=== PATIENT | female | born 1980 | race Caucasian/White ===

== ENCOUNTER 2022-11-23 01:33 | Day surgery (SDC) | payer OTHER, SELFPAY ==
--- NOTE | 2022-11-10 10:13 | SUR.PREOP ---
Report to the Outpatient Waiting Room, entrance under the green pavilion located off [facility], at time 1000 on date 11/23/22. Planned Procedure Time: 1200. Time changes happen often and if your time is changed the preop area will call you the afternoon before. - You and your visitor will be asked to self-screen and do not enter if you have any COVID symptoms. - Only one visitor is requested with a max of two and NO children visitors are allowed at this time. - The patient visitor may be requested to leave or wait in car when not with patient due to distancing restrictions. - A mask is optional within the hospital at this time. Patients may have clear liquids (water, carbonated beverages, clear teas, apple juice) until 3 hours prior to surgery with a maximum of 20 ounces. - No food from midnight until time of surgery - Infants may have breast milk until 4 hours before surgery, formula 6 hours prior to surgery. - Children will be allowed to drink immediately following surgery. If applicable, please bring a bottle or sippy cup to assist with drinking. Juice, water, soda, and popsicles are readily available. For infants on formula, please bring formula the day of surgery. Pacifiers are allowed. Take the following medications with a SIP of water the morning of surgery: N/A DO NOT STOP ANY OF YOUR OTHER PRESCRIPTION MEDICATIONS PRIOR TO SURGERY ?EXCEPT THE FOLLOWING Medications to discontinue per physician N/A Date to take last dose N/A Please no make-up, nail mongolian, hairspray, perfume, deodorant, or body powder the day of surgery. No jewelry (including any body piercings) or valuables the day of surgery, leave them at home. Please take a shower or bath the night before, or the morning of, surgery with an antibacterial soap. Wear comfortable, loose fitting clothing. Children are encouraged to wear pajamas. - Jewelry must be removed prior to entering the operating room. Rings and piercings that are not removed may be cut off. - The hospital will not accept responsibility for valuables. - Please leave all valuables, including medications, at home the day of surgery. If you are going home after surgery, a licensed cement truck driver must drive you home. - NO public transportation without another adult if you receive anesthesia. - We recommend that an adult stay with you for 24 hours following discharge. - We also recommend that you do not drive, make important decision, drink alcoholic beverages, or take any drugs that were not prescribed by your health care provider for at least 24 hours after your discharge time. For Pediatric surgeries, we recommend two adults accompany the child home. Follow any additional instructions given to you from your surgeon. If you or anyone in your household have experienced Covid symptoms in the past week, please notify your surgeon or the nurse liaison at the phone number below for possible testing. Telephone instructions given to ROXI TIDWELL and asked if any additional questions and then verbalized understanding. Patient advised to call surgeon office or pre surgery nurse liaison [phone] if any additional questions.
[2022-11-10 10:20] VITALS: BMI 24.7
--- NOTE | 2022-11-22 19:53 | PM.IMHP ---
H&P: HPI History of Present Illness Date/Time: 11/22/22 19:53 Chief Complaint: Heavy periods. Narrative: 41 y/o with heavy menses. She has monthly menses with 6 days of flow. The first 1-3 days are horrific, and she will frequently overflow her protection onto her clothing. An endometrial sampling was benign. She had a right salpingectomy, but her left Fallopian tube is in situ, and she has been told it is abnormal. She has tried hormonal management, but has quite a lot of nausea. She does not desire future childbearing. She desires surgical management of her problem. Review of Systems Review of Systems: All systems reviewed & are unremarkable except as noted in HPI and below PMFSH Past Medical History Medical History (Updated 11/22/22 @ 20:01 by Srini Epps MD) History of ectopic Surgical History Surgical History (Updated 11/22/22 @ 19:58 by Srini Epps MD) History of eye surgery History of salpingectomy Social History Social History Smoking status: Never smoker Second hand tobacco smoke exposure: No Alcohol intake: current Alcohol use details: 1 PER MONTH Living arrangements: with family Spiritual care concerns: No Comments Past OB: One vaginal delivery of a boy weighing 8 pounds at term. Three ectopic pregnancies, one leading to laparoscopic right salpingectomy. Meds Home Medications and Allergies Home Medications Medication Instructions Recorded Confirmed Type tranexamic acid 650 mg tablet 1,300 mg PO TID 11/10/22 11/10/22 History Allergies Allergy/AdvReac Type Severity Reaction Status Date / Time No Known Allergies Allergy Unverified 11/10/22 10:23 Exam Const: Orientation/consciousness: patient oriented x3 Other: Well-developed, well-nourished female in no acute distress. Neck: Thyroid: thyroid normal Lymphatic: no lymphadenopathy noted (in neck, axilla or inguinal nodes) Resp: Effort & Inspection: normal respiratory effort Auscultation: clear to auscultation bilaterally Cardio: Rate: regular rate Rhythm: regular rhythm Heart sounds: S1 normal heart sound present and S2 normal heart sound present GI: Other: ABD: Soft, nontender, nondistended. No guarding or rebound tenderness. No hepatosplenomegaly. : General: Yes no CVA tenderness Other: External genitalia: normal female hair distribution, without lesion. Urethral meatus: no lesion, non prolapsed. Bladder: no mass, nontender Vagina: well-estrogenized, without lesion or discharge. No cystocele or rectocele. Cervix: no lesion or discharge. Uterus: small, anteverted, freely mobile, nontender Adnexa: no mass or tenderness. Anus/perineum: no lesions, nontender Back/Spine/Pelvis: Back: no CVA tenderness Skin: General skin exam: normal color and no rashes or lesions noted Neuro: General: patient oriented x3 Extrem: Other: Extremities: nontender with no edema Psych: Mental Status: mental status grossly normal Affect: normal affect Assessment and Plan Assessment and plan (1) Menometrorrhagia: Code(s): N92.1 - Excessive and frequent menstruation with irregular cycle Status: Acute Assessment and Plan: A: Menometrorrhagia. Desired sterility. History of abnormal left Fallopian tube. P: We reviewed medical as well as surgical treatment options. She prefers the latter. Specifically, I have offered her laparoscopic left salpingectomy, hysteroscopy, dilation and sharp curettage, and endometrial ablation. She understands there are temporary methods of contraception available to her. She understands that there are nonsurgical options as well as surgical options. She understands that salpingectomy will render her permanently sterile. She understands that there is a failure rate associated with tubal sterilization, as well as an inherent ectopic gestation risk. Furthermore, she understands ris
[2022-11-23] VITALS (9 sets, daily range): BP systolic 102–113; BP diastolic 57–75; PULSE 63–89; RESP 14–20; TEMP 36.3–36.9; O2SAT 100
[2022-11-23] MEDS: ACETAMINOPHEN 500 MG TABLET 1000 MG PO (10:36)
[2022-11-23] MEDS: KETOROLAC 15 MG/ML VIAL (*BKC) IV PUSH (10:37)
[2022-11-23] MEDS: LACTATED RINGERS 1,000 ML 30 ML IV CONT ×2 (10:37→13:35)
--- NOTE | 2022-11-23 11:23 | P.PNAN_ITS ---
Anes - Initial Pre Proc Eval Procedure: Operation Date: 11/23/22 12:00 Proposed Procedures p Hysteroscopy with Dilation and Curettage, Megan Endometrial Ablation, Laparoscopic Left Salpingectomy - Srini Epps MD Date/Time: 11/23/22 11:23 Surgeon: Srini Epps MD Pre Op Diagnosis: Excess Bleed, Dysmenorrhea,Desire Sterilization Patient Data Age: 41 Gender: F Height: 1.68 m Weight: 70.1 kg Last Vital Signs Temp 98.4 F 11/23/22 11:00 Pulse 79 11/23/22 11:00 Resp 16 11/23/22 11:00 BP 109/71 11/23/22 11:00 Pulse Ox 100 11/23/22 11:00 O2 Del Method Room Air 11/23/22 11:00 Allergies Allergy/AdvReac Type Severity Reaction Status Date / Time No Known Allergies Allergy Unverified 11/23/22 11:06 Home Medications Medication Instructions Recorded Confirmed Type tranexamic acid 650 mg tablet 1,300 mg PO TID 11/10/22 11/10/22 History Patient hx anesthesia problems: post op nausea/vomiting Family hx anesthesia problems: none Results Review: All pre-operative results and documents have been reviewed as part of the pre- operative evaluation. [facility] Past Medical History Medical History (Updated 11/22/22 @ 20:01 by Srini Epps MD) History of ectopic Surgical History Surgical History (Updated 11/22/22 @ 19:58 by Srini Epps MD) History of eye surgery History of salpingectomy Social History Social History Smoking status: Never smoker Second hand tobacco smoke exposure: No Alcohol intake: current Alcohol use details: 1 PER MONTH Living arrangements: with family Spiritual care concerns: No Anes - Eval Final PreProcedure Day of Procedure 11/23/22 11:23 Patient weight: normal Heart: regular rate and rhythm Lungs: clear to auscultation Airway: Mallampati scale class II Neurological: alert and oriented Last oral intake: >/= 8 hours ASA classification: II Emergent: no Anesthetic plan: proceed Anesthesia type and monitoring: general ETT and standard monitoring Results Review: All pre-operative results and documents have been reviewed as part of the pre- operative evaluation. Informed Consent: The patient's anesthetic plan and its attendant risks and benefits were discussed with the patient/family/POA. Questions were solicited and answers provided to the satisfaction of the patient/family/POA.
[2022-11-23] MEDS: SCOPOLAMINE 1.5 MG PATCH TRANSDERM (11:35)
--- NOTE | 2022-11-23 12:09 | WPDHPUPDATE1 ---
History and Physical Update Update Date/Time: 11/23/22 12:09 History and Physical has been reviewed, including an updated exam of the patient. There are NO changes in the patient's condition. Risks, benefits, and alternatives have been discussed and questions answered. Patient agrees to proceed with procedure.
--- NOTE | 2022-11-23 13:14 | SUR.OPER ---
hysteroscopy [id number]
[2022-11-23] MEDS: LIDOCAINE HCL 1% LOCAL INJ 20 ML VIAL 10 ML INFILTRATE (13:15)
--- NOTE | 2022-11-23 13:38 | W.PM.PROC2 ---
Procedure Note - Detailed Date of Procedure 11/23/22 Pre-op Diagnosis Menometrorrhagia Desired sterility Post-op Diagnosis Same Procedure Performed Laparoscopic left salpingectomy Biopsy of peritoneum of posterior cul de sac Cautery of endometriosis Hysteroscopy Dilation and sharp curettage Endometrial ablation Surgeon Srini Epps MD Anesthesia General and Local (1% lidocaine paracervical block) Findings Liver, gallbladder, appendix all normal-appearing. Uterus unremarkable. Right Fallopian tube surgically absent. Right ovary unremarkable. Left ovary not clearly visible, presumably encased in adhesions at the pelvic sidewall. Left Fallopian tube dilated. Left adnexal cyst with serous fluid; not clear whether this represents an ovarian cyst, paratubal cyst, or peritoneal cyst, but favor the last. Apparent endometriosis implants in the posterior cul-de-sac. Description of Procedure The patient was taken to the operating room where general endotracheal anesthesia was administered. She was prepared and draped in the usual sterile fashion in dorsal lithotomy position. The bladder was drained with a red rubber catheter. A sterile speculum was placed into the vagina. The anterior lip of the cervix was grasped with a single-tooth tenaculum. The acorn uterine manipulator was placed. The speculum was withdrawn. Gloves were changed and attention was turned the abdomen. An infraumbilical skin incision was made with a scalpel. The abdomen was tented and a 5mm bladeless trocar was advanced under direct laparoscopic visualization. Pneumoperitoneum was administered using carbon dioxide gas. A survey of the pelvis and abdomen revealed the findings noted above. Skin incisions were made in the right and left lower quadrants, and 5mm bladeless trocars were advanced under direct laparoscopic visualization. Ureters were visualized bilaterally. The fallopian tube on the right side was surgically absent. A 2.5 cm left adnexal cystic structure was seen, with the left fallopian tube densely adherent to it. During dissection, the cyst was drained of serous fluid. The Ligasure device was used to ligate and transect the left fallopian tube and the adherent cyst wall. The specimen was withdrawn and sent to pathology. An apparent endometriosis implant was biopsied in the posterior cul-de-sac. Needlepoint electrocautery was used to cauterize the apparent endometriosis. The pelvis was irrigated copiously with warmed normal saline, and hemostasis was excellent. The ports were withdrawn. The gas was allowed to escape. The skin incisions were reapproximated using interrupted subcuticular sutures of 4 0 Vicryl. Dermaflex was applied externally. Attention was redirected to the vagina. The acorn uterine manipulator was withdrawn. A sterile speculum was reintroduced into the vagina. Ten mL of 1% lidocaine was administered in a paracervical block. The cervix was then gently dilated using Hegar dilators until an 8 mm dilator could be passed. Hysteroscopy was performed using sterile saline as a distention medium. Findings are as noted above. Sharp curettage was then performed, and endometrial curettings were collected on a Telfa pad and passed off to be sent to pathology. Finally, the the Megan device was advanced and endometrial ablation commenced without difficulty. The device was withdrawn and a second look was taken using the hysteroscope. Excellent coverage of the endometrial cavity was noted. The tenaculum was removed. Hemostasis was excellent. Sponge, lap, needle and instrument counts were correct. The patient was awakened and taken to the recovery room in stable condition. I was present and scrubbed through the entire procedure. Implants None Estimated Blood Loss 10 Drains No Packing No Pathology Yes (Left Fallopian tube, peritoneal biopsy from posterior cul-de-sac, endometrial curettings.) Complications None Condition Stable Disposition PACU
[2022-11-23] MEDS: fentaNYL CITRATE INJ (*CRX) 100 MCG/2 ML VIAL 25 MCG IV PUSH ×2 (13:58→14:03)
== END 2022-11-23 15:36 | disposition home or self-care (01) ==
PROVIDERS: Visit Provider Obstetrics & Gynecology
PROC: 0UDB8ZZ Extraction of Endometrium, Via Natural or Artificial Opening Endoscopic (ICD-10-PCS; CPT 58558; principal; 2022-11-23 12:00)
DX: N92.1 Excessive and frequent menstruation with irregular cycle (principal); Z30.2 Encounter for sterilization; K66.8 Other specified disorders of peritoneum; N80.329 Endometriosis of the posterior cul-de-sac, unspecified depth; N83.8 Other noninflammatory disorders of ovary, fallopian tube and broad ligament
CPT/HCPCS: 58661; 58563; 58662; 88302; 88305; A9270; J0330; J1100; J1885; J2250; J2405; J2704; J2710; J3010; J7030; J7120

== ENCOUNTER → 2023-07-28 15:28 | Outpatient (CLI) | payer OTHER, SELFPAY ==
--- NOTE | ~2023-07-28 | MM_ITS ---
EXAMINATION: MM screening stu BI w tiff HISTORY: Screening mammogram TECHNIQUE: Craniocaudal and mediolateral oblique 3-D tomosynthesis images were obtained and synthetic 2-D images were generated. Right lateral rotated craniocaudal view. CAD analysis was submitted and i nterpreted. COMPARISON: No prior mammogram is available for comparison at this institution. BREAST PARENCHYMAL COMPOSITION: The breasts are heterogeneously dense, which may obscure small masses . FINDINGS: There is mammographic asymmetry. Recommend comparison with prior mammograms to determine if this is stable. Otherwise no suspicious mass, malignant calcification, skin thickening or retraction is evident. IMPRESSION: 1. Bilateral mammographic asymmetry. 2. Comparison with prior mammograms is recommended. BI-RADS Category 0: Incomplete: Needs additional imaging evaluation. Reviewed, dictated and finalized at location A.
== END ==
PROVIDERS: PCP Obstetrics & Gynecology; Visit Provider Obstetrics & Gynecology
DX: Z12.31 Encounter for screening mammogram for malignant neoplasm of breast (principal); R92.8 Other abnormal and inconclusive findings on diagnostic imaging of breast
CPT/HCPCS: 77063; 77067

== ENCOUNTER 2024-08-01 14:57 | Outpatient (CLI) | payer OTHER, SELFPAY ==
--- NOTE | ~2024-08-01 | MM_ITS ---
EXAMINATION: MM screening stu BI w tiff HISTORY: Screening mammogram TECHNIQUE: Craniocaudal and mediolateral oblique 3-D tomosynthesis images were obtained and synthetic 2-D images were generated. CAD analysis was submitted and interpreted. COMPARISON: 07/28/2023, 02/21/2022, 02/19/2021 BREAST PARENCHYMAL COMPOSITION:Dense: The breasts are heterogeneously dense, which may obscure small masses. FINDINGS: Questionable developing mass versus summation artifact at the slightly upper, outer right b reast. Parenchymal pattern of the left breast is unchanged. IMPRESSION: Questionable developing mass versus summation artifact at the upper, outer right breast. Spot compre ssion views, and possibly ultrasound, are recommended for further evaluation. BI-RADS Category 0: Incomplete: Needs additional imaging evaluation. Reviewed, dictated and finalized at [facility]. IMPRESSION: Questionable developing mass versus summation artifact at the upper, outer rig ht breast. Spot compression views, and possibly ultrasound, are recommended for further evaluation. BI-RADS Category 0: Incomplete: Needs additional imaging evaluation.
== END 2024-08-01 14:58 | disposition home or self-care (01) ==
PROVIDERS: Visit Provider Obstetrics & Gynecology
DX: Z12.31 Encounter for screening mammogram for malignant neoplasm of breast (principal); R92.8 Other abnormal and inconclusive findings on diagnostic imaging of breast
CPT/HCPCS: 77063; 77067

== ENCOUNTER 2024-08-13 09:03 | Outpatient (CLI) | payer OTHER, SELFPAY ==
--- NOTE | ~2024-08-13 | MMUS_ITS ---
CORRECTED REPORT added w tiff to examination description [facility] 08/14/24 This report was recreated on 08/14/24. Original report was [employer] EXAMINATION: MM diagnostic mammo unilat RT w tiff, US breast RT limited HISTORY: Right breast mass TECHNIQUE: Additional 3-D tomosynthesis images of the right breast were performed and synthetic 2-D images were generated. CAD analysis was submitted and interpreted. High resolution limited right breast ultrasound was performed. COMPARISON: 08/01/2024 BREAST PARENCHYMAL COMPOSITION:Dense: The breasts are heterogeneously dense, which may obscure small masses. FINDINGS: MAMMOGRAPHIC FINDINGS: Spot compression views confirm a low-density oval 2 cm mass at the upper, outer right breast. ULTRASOUND: At the 10:00 position right breast, 5 cm from the nipple, there is a 6 x 6 x 7 mm anechoic simple cyst. At the 10:00 position right breast, 2 cm from nipple, there is a 13 x 7 x 13 mm anechoic simple cyst. At the 11:00 right breast, periareolar region, there is a group of adjacent cysts or cluster of cysts measuring up to 1 cm in maximum overall diameter. IMPRESSION: No evidence for malignancy. Benign right breast cysts, as detailed above. BI-RADS Category 2: Benign finding(s). Reviewed, dictated and finalized at location M. [employer] MTDD IMPRESSION: No evidence for malignancy. Benign right breast cysts, as detailed above. BI-RADS Category 2: Benign finding(s).
== END 2024-08-13 09:04 | disposition home or self-care (01) ==
PROVIDERS: Visit Provider Obstetrics & Gynecology
DX: R92.8 Other abnormal and inconclusive findings on diagnostic imaging of breast (principal)
CPT/HCPCS: 76642; 77061; 77065; G0279

== ENCOUNTER 2024-11-14 08:45 | Emergency (ER) | payer OTHER, SELFPAY ==
--- OUTSIDE RECORDS SUMMARY | 2024-11-14 08:53 | XMS_ITS | Patient Health Summary ---
Author Organization [facility] Address [address] [place] [address] Care Team Providers Care Spring Internship Name Role Phone Lula Shankar MD Primary Care Provider Note from [facility],non-owned Affiliates and Associated Physician Practices is amultiple site organization consisting of ambulatory clinics and hospital sitesin [place], [place], [place] and [place]. This disclosure is being madepursuant to the Care Everywhere program and may not contain all information available regarding this patient. Last updated 18.[facility] Allergies No known active allergies Medications * Be aware that medications may not be up to date on this document. Alwaysverify current medications with the patient. * oxyCODONE-acetaminophen (PERCOCET) 5-325 MG tablet(Started 03/12/2014) Take 1-2 Tabs by mouth every 6 hours as needed for Pain. * ibuprofen (MOTRIN) 600 MG tablet(Started 03/12/2014) Take 1 Tab by mouth every 6 hours as needed for Pain. * docusate sodium (COLACE) 100 MG capsule(Started 03/12/2014) Take 1 Cap by mouth 2 times daily. 3 refills left * polyethylene glycol 3350 (MIRALAX) powder(Started 03/12/2014) Take 17 g by mouth once daily. 1 refill left Active Problems No known active problems Social History Tobacco Use Types Packs/Day Years Used Date Smoking Tobacco: Never Smokeless Tobacco: Never Alcohol Use Standard Drinks/Week Comments Yes 0 (1 standard drink = 0.6 oz pur e alcohol) Sex and Gender Information Value Date Recorded Sex Assigned at Not on file Gender Identity Not on file Sexual Orientation Not on file Last Filed Vital Signs Vital Sign Reading Time Taken Comments Blood Pressure 110/64 03/20/2014 2:34 PM CDT Pulse 64 03/12/2014 1:57 PM CDT Temperature 36.3 C (97.4 F) 03/12/2014 1:57 PM CDT Respiratory Rate 16 03/12/2014 1:57 PM CDT Oxygen Saturation 100% 03/12/2014 3:03 PM CDT Inhaled Oxygen Concentration - - Weight 63.5 kg (140 lb) 03/20/2014 2:34 PM CDT Height 167.6 cm (5' 6 ) 03/20/2014 2:34 PM CDT Body Mass Index 22.6 03/20/2014 2:34 PM CDT Procedures * DERMATOPATHOLOGY(Performed 10/04/2022) * DERMATOPATHOLOGY(Performed 04/07/2022) * DERMATOPATHOLOGY(Performed 03/02/2022) * DERMATOPATHOLOGY(Performed 04/08/2021) * CARDIAC RHYTHM STRIP ORDER(Performed 03/14/2014) * PATHOLOGY TISSUE EXAM (STL)(Performed 03/12/2014) Performed for Chronic salpingitis and oophoritis * LAPAROSCOPIC SALPINGECTOMY AND/OR OOPHORECTOMY(Performed 03/12/2014) Performed for Chronic salpingitis and oophoritis * HCG URINE QUALITATIVE - POINT OF CARE(Performed 03/12/2014) * PATHOLOGY/GENETICS HISTORICAL-ONBASE(Performed 03/12/2014) * TYPE + SCREEN PANEL(Performed 03/11/2014) Performed for Preoperative examination, unspecified * CBC W AUTO DIFFERENTIAL(Performed 03/11/2014) Performed for Preoperative examination, unspecified * BLOOD TYPE VERIFICATION(Performed 03/11/2014) Results * DERMATOPATHOLOGY (10/04/2022 12:00 AM ORNAMENTAL METAL WORKER APPRENTICE) Only the most recent of4 resultswithin the time period is included. Case Report Dermatopathology Report Case: [id number] Authorizing Provider: Fozia Carrera DO Collected: 10/04/2022 12:00 AM Ordering Location: [facility] DermPath Lab Received: 10/04/2022 03:16 PM Pathologist: Shane Small MD Specimen: Skin, left NLF 4:48 PM ORNAMENTAL METAL WORKER APPRENTICE DERMATOPATHOLOGY LABORATORY Final Diagnosis Specimen A. SKIN, left NLF: FRAGMENTS OF EPIDERMIS (D23.9) (see microscopic description) 3 4:48 PM ORNAMENTAL METAL WORKER APPRENTICE DERMATOPATHOLOGY LABORATORY Clinical History Milia vs BCC vs Mando-H 3 4:48 PM ORNAMENTAL METAL WORKER APPRENTICE DERMATOPATHOLOGY LABORATORY Gross Description Specimen A: Received is one formalin filled container labeled with the patient's name and designated left NLF. The specimen consists of a shave biopsy measuring 2x1x1 mm. Jar 0. 3 4:48 PM ORNAMENTAL METAL WORKER APPRENTICE DERMATOPATHOLOGY LABORATORY Microscopic Description Specimen A. SKIN, left NLF: There are fragments of squamous epithelium without evidence of epithelial dysplasia or malignancy. There is minimal dermis present for evaluation. Additional deeper sections were obtained and reviewed. 3 4:48 PM ORNAMENTAL METAL WORKER APPRENTICE DERMATOPATHOLOGY LABORATORY Disclaimer An external and internal positive and negative controls are appropriate for the histochemical, immunohistochemical and immunofluorescence stain(s) in this case (if any), except where stated explicitly. The performance characteristics of the stain(s) cited in this report were developed and its performance characteristic determined by the Dermatopathology Laboratory at [facility], directed by Dr. Rosa Isela Small. These tests need not be, and therefore are not, approved by the [place] Food and Drug Administration. The tests are used for clinical purposes. Billing Codes Specimen Charges Stain Charges 13224 1 3 4:48 PM ORNAMENTAL METAL WORKER APPRENTICE DERMATOPATHOLOGY LABORATORY Embedded Images 3 4:48 PM ORNAMENTAL METAL WORKER APPRENTICE DERMATOPATHOLOGY LABORATORY Pathology/Cytolog y TISSUE SPECIMEN FROM SKIN / Unknown 10/04/2022 10/04/2022 3:16 PM ORNAMENTAL METAL WORKER APPRENTICE Fozia Carrera DO LAB - PATHOLOGY/C YTOLOGY ORDERABLES DERMATOPATHOLOGY LABORATORY [facility] - Department of Dermatology [address], [address] [phone] * CARDIAC RHYTHM STRIP ORDER (03/14/2014 5:34 PM CDT) Narrative 03/14/2014 5:34 PM CDT Ordered by an unspecified provider. Transcriptions Document, Scanned - 03/14/2014 5:34 PM CDT Scanned Document CARDIAC SERVICES ORD ERABLES * GROSS + MICRO EXAM (STL) (03/12/2014 12:32 PM CDT) Case Report Surgical Pathology Report Case: [id number] Authorizing Provider: Carmen Maldonado , Ordering Provider: Carmen Maldonado MD MD Ordering Location: [facility] Collected: 03/12/2014 12:32 PM Pathologist: Antonia Augustin MD Received: 03/12/2014 1:59 PM Signed Out: 03/13/2014 3:05 PM (Final) Specimens: A) - Fallopian Tube, right fallopian tube B) - Cul De Sac , right posterior cul-de-sac C) - Cyst, left peritublar cyst 03/13/2014 3:05 PM CDT [facility] Final Diagnosis 1. Fallopian tube, right, excision: -- Hydrosalpinx 2. Posterior cul-de-sac, right, biopsy: -- Hemosiderin laden macrophages seen -- No evidence of endometriosis seen 3. Paratubal cyst, left, excision: -- Hydatid cyst of Morgagni BUSINESS PLANNING MANAGER/GM/alj 03/13/2014 3:05 PM CDT [facility] Gross Description The specimens are submitted in three formalin-filled containers for gross and microscopic examination and are labeled with the patient's name, Gloria Concepcion. Part A, right fallopian tube, consists of fallopian tube measuring 6 cm in length and 0.6 cm in diameter. The fallopian tube is dilated from isthmus to ampulla and measures 2 cm in maximum diameter. The external surface of the fallopian tube is purple-pink in color and is covered with fibrous adhesions and subserosal hemorrhage. The transverse section of the fallopian tube reveal dilated cystic fallopian tube filled with clear serous fluid. Orthopedically Impaired Teacher sections of the specimen are submitted in cassettes A1, A2 and A3. Part B, right posterior cul de sac, and consists of multiple soft pink-strong membranous tissue fragments partially covered with red spots measuring 1.2 x 0.4 x 0.2 cm. The entire specimen is submitted in cassette B1. Part C, left peritubular cyst, consists of pink-strong cystic soft tissue measuring 1 x 0.8 x 0.6 cm. The specimen is longitudinally sectioned to reveal cysts measuring 0.5 cm in diameter filled with serous fluid. The bisected specimen is submitted entirely in cassette C1. BUSINESS PLANNING MANAGER/na 03/13/2014 3:05 PM CDT [facility] Microscopic Description The sections of the fallopian tube shows dilated cystic fallopian tube consistent with hydrosalpinx. No evidence of malignancy is seen. The sections of right posterior cul-de-sac shows few hemosiderin laden macrophages with no evidence of endometriosis is seen. 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 No evidence of malignancy is seen. OSIEL/efrain 03/13/2014 3:05 PM CDT [facility] Synoptic Report 03/13/2014 3:05 PM T [facility] Pathology/Cytology FALLOPIAN TUBE PART / Unknown 03/12/2014 12:32 PM CDT 03/12/2014 1:59 PM CDT Miscellaneous samples (specimen) ENTIRE RECTOUTERINE POUCH / Unknown 03/12/2014 12:32 PM CDT 03/12/2014 1:59 PM CDT Miscellaneous samples (specimen) CYST TISSUE / Unknown 03/12/2014 12:32 PM CDT 03/12/2014 1:59 PM CDT Carmen Maldonado MD LAB - PATHOL OGY/CYTOLOGY ORDERABLES [facility] [address] [place] [address] * HCG URINE QUALITATIVE - POINT OF CARE (IP) (03/12/2014 10:14 AM CDT) HCG Qual Urine Negative Negative [facility] POCT TESTING QC Verified Yes Yes [facility] POC T TESTING Urine specimen (specimen) URINE / Unknown 03/12/2014 10:14 AM CDT Carmen Maldonado MD LAB - POINT OF CARE ORDERABLES Performing Organization Address City/[facility]/ZIP Co de Phone Number [facility] POCT TESTING [address] [place] [address] * PATHOLOGY/GENETICS HISTORICAL-ONBASE (03/12/2014) 03/12/2014 Narrative [facility] - 03/14/2014 8:08 AM CDT Historical Provider LAB - CHEMISTRY O RDERABLES Performing Organization Address [facility] Co de Phone Number [place] [phone] [address] * TYPE + SCREEN PANEL (03/11/2014 10:28 AM CDT) ABO O 03/11/2014 1:16 PM CDT [facility] Rh Type Positive 03/11/2014 1:16 PM CDT [facility] Comment:History check perfor med. No retype required. Antibody Screen Negative 03/11/2014 1:16 PM CDT [facility] Miscellaneous samples (specimen) BLOOD SPECIMEN / Unknown Venipuncture / Unknown 03/11/2014 10:28 AM CDT 03/11/2014 10:52 AM CDT Carmen Maldonado MD LAB - BLOOD BANK ORDERABLES Performing Organization Address City/[facility]/ZIP Co de Phone Number [facility] * (ABNORMAL) CBC W AUTO DIFFERENTIAL (03/11/2014 10:28 AM CDT) WBC 6.3 4.4 - 10.7 x10^9/L 03/11/2014 11:03 AM CDT [facility] RBC 4.80 3.80 - 5.20 x10^12/L 03/11/2014 11:03 AM [facility] Hemoglobin 13.5 12.0 - 15.6 gm/dL 03/11/2014 11:03 AM [facility] Hematocrit 40.3 35.9 - 45.5 % 03/11/2014 11:03 AM [facility] MCV 84.0 80.7 - 98.3 fl 03/11/2014 11:03 AM [facility] MCH 28.1 26.7 - 34.0 pg 03/11/2014 11:03 AM [facility] MCHC 33.5 30.8 - 35.9 gm/dL 03/11/2014 11:03 AM [facility] Platelet Count 208 153 - 416 x10^9/L 03/11/2014 11:03 AM [facility] RDW-CV 13.5 12.1 - 14.9 % 03/11/2014 11:03 AM [facility] MPV 10.3 9.4 - 12.9 fl 03/11/2014 11:03 AM [facility] Neutrophils % 73.9(H) 44.0 - 73.0 % 03/11/2014 11:03 AM [facility] Lymphocytes % 18.8(L) 20.0 - 43.0 % 03/11/2014 11:03 AM [facility] Monocytes % 6.2 5.0 - 13.0 % 03/11/2014 11:03 AM [facility] Eosinophils % 0.5 0.0 - 6.0 % 03/11/2014 11:03 AM [facility] Basophils % 0.3 0.0 - 2.0 % 03/11/2014 11:03 AM [facility] Immature Granulocytes 0.3 0 - 1 % 03/11/2014 11:03 AM [facility] Neutrophil Absolute 4.67 2.01 - 7.14 x10^9/L 03/11/2014 11:03 AM [facility] Lymphocytes Absolute 1.19 1.07 - 3.94 x10^9/L 03/11/2014 11:03 AM [facility] Monocytes Absolute 0.39 0.26 - 1.07 x10^9/L 03/11/2014 11:03 AM [facility] Eosinophils Absolute 0.03 0 - 0.47 x10^9/L 03/11/2014 11:03 AM CDT [facility] Basophils Absolute 0.02 0 - 0.08 x10^9/L 03/11/2014 11:03 AM CDT [facility] Immature Granulocytes Absolute 0.02 0.00 - 0.06 x10^9/L 03/11/2014 11:03 AM CDT [facility] nRBC Auto 0 /100 WBC 03/11/2014 11:03 AM CDT [facility] Blood BLOOD SPECIMEN / Unknown Venipuncture / Unknown 03/11/2014 10:28 AM CDT 03/11/2014 10:52 AM CDT Carmen Maldonado MD LAB - HEMATO LOGY ORDERABLES [facility] [address] [place] [address] * BLOOD TYPE VERIFICATION (03/11/2014 10:25 AM CDT) ABO O 03/11/2014 12:53 PM CDT [facility] Rh Type Positive 03/11/2014 12:53 PM CDT [facility] Miscellaneous samples (specimen) BLOOD SPECIMEN / Unknown 03/11/2014 10:25 AM CDT 03/11/2014 12:50 PM CDT Carmen Maldonado MD LAB - BLOOD BANK ORDERABLES [facility] Care Teams Spring Internship Relationship Specialty Start Date End Date Lula Shankar MD PCP - General Family Medicine 03/06/14
--- OUTSIDE RECORDS SUMMARY | 2024-11-14 08:53 | XMS_ITS | Clinical Summary ---
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 Gender Identity Not on file Sexual Orientation Not on file Plan of Treatment Health Maintenance Due Date Last Done Comments Cervical Cancer Screening Pap Smear (Age 30 to 64) Every 3 Years 1978 Colorectal Cancer Screening Colonoscopy (10 Years) 1978 Annual Physical 1981 Hepatitis C 1996 DTaP, Tdap and Td Vaccines (1 - Tdap) 1997 Hepatitis B Vaccines (1 of 3 - 19+ 3-dose series) 1997 Cervical Cancer Screening Pap with HPV Testing (Age 30 to 64) Every 5 Years 2008 Cervical Cancer Screening with HPV 2008 Mammogram Screening 02/22/2024 02/21/2022, 02/19/2021, 02/17/2020, Additional history exists COVID-19 Vaccine (2023- season) 2024 Influenza Adult (#1) 2024 HPV Vaccines Aged Out No longer eligi ble based on patient's age to complete this topic Meningococcal B Vaccine Aged Out No l onger eligible based on patient's age to complete this topic Meningococcal Vaccine Aged Out No lorena sarah eligible based on patient's age to complete this topic Pneumococcal Vaccine: Pediatrics (0 to 5 Years) and At-Risk Patients (6 to 64 Years) Aged Out No longer eligible based on patient's age to complete this topic RSV Immunizations Under 20 Months Aged Out No longer eligible based on patient's age to complete this topic Procedures Procedure Name Priority Date/Time Associated Diagnosis Comments MG SCREENING W J CARLOS CHRISTINA DIGI Routine 02/21/2022 8:28 AM CDT Encounter for mammogram to establish baseline mammogram from Last 3 Months or Most Recently Relevant to Health Maintenance Results * MG SCREENING W J CARLOS CHRISTINA DIGI (02/21/2022 8:28 AM CDT) Anatomical Region Laterality Modality Breast Bilateral Mammography 02/21/2022 3:38 PM CDT Impressions 02/21/2022 3:42 PM CDT IMPRESSION: No interval features to suggest malignancy. In the absence of clinical symptoms, return for annual screening mammogram due in 1 year. RECOMMENDATION: Routine Screening, Bilateral in 1 year ASSESSMENT: ACR BI-RADS 2 - BENIGN FINDING(S) Ordered By: EAMON ARELLANO Interpreted By: Karen Aviles MD, 02/21/2022 3:38 PM Narrative 02/21/2022 3:42 PM CDT EXAMINATION: BILATERAL SCREENING MAMMOGRAPHY Exam Date: 02/21/2022 8:09 AM CLINICAL INDICATION: 41 years of age female routine screening. Reports 10 pound weight gain since last mammogram.Known history of cyst(s). COMPARISON: Screening mammogram(s) 02/19, 02/18, 02/17 TECHNIQUE: Digital CC & MLO views. Tomosynthesis imaging acquisition Study read with the assistance of a computer-aided detection system. TISSUE DENSITY: The breast tissue is heterogeneously dense, which may obscure small masses. Presence of a nodular heterogeneous tissue pattern also decreases mammographic sensitivity. If patient is willing to accept potential for false positives, consider supplemental whole bilateral screening breast ultrasound surveillance or breast MRI which may optimize early breast cancer detection. FINDINGS: Fairly stable glandular pattern with similar asymmetric dense nodular parenchymal patches and nodular densities along with fluctuant waxing waning nodules, several of the latter compatible with known history of cysts. Overall these appear relatively stable, smaller, and/or have resolved after accounting for differences in technique and involutional changes, when compared to prior studies dating back 07/15. Stable partially imaged axillary lymph nodes compared to studies dating back 07/15. No suspicious grouping of microcalcifications, architectural distortion, or new dominant suspicious nodule 3 dimensionally demonstrated in either breast. Eamon Arellano MD MAMMO Final Result from Last 3 Months or Most Recently Relevant to Health Maintenance Insurance [facility] Care Teams Alemite Operator Relationship Specialty Start Date End Date Lula Kilpatrick MD PCP - General FAMILY PRACTICE 02/06/20
--- OUTSIDE RECORDS SUMMARY | 2024-11-14 08:53 | XMS_ITS | Clinical Summary ---
Author Organization [facility] Address [address] [place] [address] Care Team Providers Care Biofuels Production Associate Name Role Phone Lula Shankar MD Primary Care Provider Source Comments [facility],non-owned Affiliates and Associated Physician Practices is amultiple site organization consisting of ambulatory clinics and hospital sitesin [place], [place], [place]. This disclosure is being madepursuant to the Care Everywhere program and may not contain all information available regarding this patient. Last updated 18.[facility] Allergies No known active allergies Medications * Be aware that medications may not be up to date on this document. Alwaysverify current medications with the patient. Medication Sig Dispensed Refills Start Date End Date Status oxyCODONE-acetaminophe n (PERCOCET) 5-325 MG tablet Take 1-2 Tabs by mouth every 6 hours as needed for Pain. 30 Tab 0 03/12/2014 Active ibuprofen (MOTRIN) 600 MG tablet Take 1 Tab by mouth every 6 hours as needed for Pain. 30 Tab 0 03/12/2014 Active docusate sodium (COLACE) 100 MG capsule Take 1 Cap by mouth 2 times daily. 60 Cap 3 03/12/2014 Active polyethylene glycol 3350 (MIRALAX) powder Take 17 g by mouth once daily. 1 Bottle 1 03/12/2014 Active Active Problems No known active problems Social [...] Mass Index 22.6 03/20/2014 2:34 PM CDT Plan of Treatment Health Maintenance Due Date Last Done Comments COLOGUARD (AGES 45-75) - COL ON CA SCREENING 1978 COLON MONITORING 1978 COLONOSCOPY - COLON CA SCREENING 1978 CT COLONOGRAPHY - COLON CA SCREENING 1978 Colorectal Cancer Screening 1978 FIT - COLON CA SCREENING 1978 FLEX SIG - COLON CA SCREENING 1978 LIPID TESTING 1978 MAMMOGRAM 1978 PAP SMEAR 1978 HIV SCREENING 1993 HEPATITIS C SCREENING 12/09/1996 DTAP/TDAP/TD VACCINES (1 - Tdap) 1997 HEPATITIS B VACCINE (1 of 3 - 19+ 3-dose series) 1997 COVID-19 VACCINE (2023-2 5 season) 2024 INFLUENZA VACCINE (#1) 2024 DEPRESSION SCREENING 10/02/2024 ZOSTER VACCINE (1 of 2) 2028 HIB VACCINE Aged Out No longer eligi ble based on patient's age to complete this topic HPV VACCINE Aged Out No longer eligi ble based on patient's age to complete this topic MENINGOCOCCAL (Group B) VACCINE Aged Out No longer eligible based on patient's age to complete this topic MENINGOCOCCAL VACCINE Aged Out No lorena sarah eligible based on patient's age to complete this topic PNEUMOCOCCAL VACCINE Aged Out No long er eligible based on patient's age to complete this topic Care Teams Biofuels Production Associate Relationship Specialty Start Date End Date Lula Shankar MD PCP - General Family Medicine 03/06/14
--- OUTSIDE RECORDS SUMMARY | 2024-11-14 08:53 | XMS_ITS | Referral Summary ---
Author Organization [facility] Address [address] [place] [address] Care Team Providers Care Hand Kiss Setter Name Role Phone Lula Shankar MD Primary Care Provider Source Comments [facility],non-owned Affiliates and Associated Physician Practices is amultiple site organization consisting of ambulatory clinics and hospital sitesin [place], [place], [place] and [place]. This disclosure is being madepursuant to the Care Everywhere program and may not contain all information available regarding this patient. Last updated 18.[facility] Allergies No known active allergies Medications * [...] 03/20/2014 2:34 PM CDT Plan of Treatment Not on file Care Teams Hand Kiss Setter Relationship Specialty Start Date End Date Lual Shankar MD PCP - General Family Medicine 03/06/14
--- OUTSIDE RECORDS SUMMARY | 2024-11-14 08:53 | XMS_ITS | Clinical Summary ---
Author Organization [facility] Address [address] [place] [phone] Phone Care Team Providers Care Agricultural Scientist Name Role Phone Unavailable Primary Care Provider Unavailabl e Social History Tobacco Use Types Packs/Day Years Used Date Smoking Tobacco: Never Assessed Comments Unknown Sex and Gender Information Value Date Recorded Sex Assigned at Not on file Legal Sex Female 10:37 AM CDT Gender Identity Not on file Sexual Orientation Not on file Plan of Treatment Health Maintenance Due Date Last Done Comments DTAP/TDAP/TD VACCINES (1 - Tdap) 1997 HEPATITIS B VACCINES (1 of 3 - 19+ 3-dose series) 1997 CERVICAL CANCER SCREENING 2008 BREAST CANCER SCREENING 2018 COLORECTAL SCREENING 12/15/2023 Colorectal Cancer Screening 12/15/2023 FIT-DNA Q 3 years 12/15/2023 FIT/FOBT Q 1 year 12/15/2023 Flex Sig/CT Colonography Q 5 years 12/15/2023 INFLUENZA VACCINE (#1) 2024 HPV VACCINES Aged Out No longer eligi ble based on patient's age to complete this topic PNEUMOCOCCAL VACCINE 0-64 YEARS Aged Out No longer eligible based on patient's age to complete this topic Insurance [facility] [facility]
[2024-11-14 09:05] VITALS: BP 119/70; PULSE 74; RESP 20; TEMP 36.7; O2SAT 100
--- NOTE | 2024-11-14 10:10 | ED.EYEPROB ---
HPI - Eye Problem General Chief complaint: Eye Problems Stated complaint: left eye Time Seen by Provider: 11/14/24 10:05 Source: patient, RN notes reviewed and old records reviewed Mode of arrival: ambulatory Limitations: no limitations History of Present Illness HPI Narrative: 43 year ol female presents to [facility] care with complaints of left eye swelling of lower eyelid for the past 1.5 weeks with no improvement with using warm compresses and saline flush to left eye. Patient reports no sharp pain to her left eye or any visual changes Visual acuity 20/20 bilateral eyes without corrective lens.. Patient reports that she thinks she has a stye. Patient deneis any recent cold symptoms or any fevers. MD chief complaint: other (left lower eyelid swelling) Onset (ago): week(s) (1.5 weeks) Onset description: gradual Location: left eye Eye Symptoms: redness and other (swelling and redness of left lower eyelid) Severity scale (1-10): 4 Treatments Prior to Arrival: irrigated eye and other (wrm compresses ) Related Data Allergies Allergy/AdvReac Type Severity Reaction Status Date / Time No Known Allergies Allergy Verified 11/14/24 09:26 Review of Systems Review of Systems: CONSTITUTIONAL: Denies fever, chills, or sweats. EYES: Denies visual changes. Reports redness,, irritation, swelling of her left lower eyelid for 1.5 weeks ENT: Denies rhinorrhea, congestion, sore throat, or otalgia. CARDIOVASCULAR: Denies chest pain, palpitations, or edema. RESPIRATORY: Denies cough or dyspnea. SKIN: Denies rash or itching. NEUROLOGIC: Denies headache All systems reviewed & are unremarkable except as noted in HPI and below PMFSH Past Medical History Medical History History of ectopic Surgical History Surgical History History of eye surgery History of salpingectomy Social History Social History Smoking status: Never smoker Second hand tobacco smoke exposure: No Alcohol intake: current Alcohol use details: 1 PER MONTH Living arrangements: with family Spiritual care concerns: No Comments At time of signature, agree with nursing past medical, surgical, social and family history. There is no relevant family history pertinent to the presenting complaint Exam Narrative: GENERAL: Well-appearing, well-nourished, and in no acute distress. HEAD: Normocephalic, atraumatic. EYES: PERRLA and EOMI. Upper left eyelid unremarkable, left lower eyelid red and swollen with internal hordeolum noted to inner lower eyelid No periorbital cellulitis noted. Sclera clear and conjunctivae injected. Patient reports no sharp pain to her left eye or any visual changes ENT: Nares clear, no rhinorrhea or epistaxis. Mucous membranes moist. NECK: Supple. no lymphadenopathy CHEST: Clear to auscultation. No respiratory distress.SAO2 100% on room air HEART: Regular rate and rhythm. No murmur heard. Normal peripheral pulses. SKIN: Warm, dry, no rash. NEURO: No focal deficits. Alert and oriented x3. Course Course Emergency Course: Patient is aware of diagnosis, understands and agrees to treatment plan. Anticipatory guidance given. Patient agrees to follow-up as directed and is aware of reasons to seek care at the emergency department. Portions of this record may have been created with voice recognition software Level of Care: Express Care Visit Vital Signs Vital signs: Vital Signs Temperature 36.7 C 11/14/24 09:05 Pulse Rate 74 11/14/24 09:05 Respiratory Rate 20 11/14/24 09:05 Blood Pressure 119/70 11/14/24 09:05 Pulse Oximetry 100 11/14/24 09:05 Oxygen Delivery Room Air 11/14/24 09:05 Temperature 36.7 C 11/14/24 09:05 Pulse Rate 74 11/14/24 09:05 Respiratory Rate 20 11/14/24 09:05 Blood Pressure 119/70 11/14/24 09:05 Pulse Oximetry 100 11/14/24 09:05 Oxygen Delivery Room Air 11/14/24 09:05 Reviewed MDM - Eye Problem MDM Narrative Medical decision making narrative: Consideration of the following conditions may be warranted for the presenting problem, they are not final diagnoses: Bacterial conjunctivitis, allergic conjunctivitis, viral conjunctivitis, foreign body, blepharitis, chalazion, hordeolum, corneal abrasion.? Exam findings show no acute concerns or changes; patient is non-toxic appearing and is in no distress.? Patient is appropriate for outpatient treatment and follow-up. Differential Diagnosis Differential diagnosis: Likely conjunctivitis and other (left lower eyelid reness and swelling, irritation of left eye, internal Hordeolum left lower eyelid) Medical Records Attestation: I reviewed the patient's medical records. Critical Care Time Critical Care Time Critical Care Time: No Discharge Plan Discharge Clinical Impression: Internal hordeolum of left eye Qualifiers: Eyelid: lower Qualified Code(s): H00.025 - Hordeolum internum left lower eyelid Patient Disposition: Home, Self-Care Condition: Stable Instructions: Antibiotic Rafita, Missael (ED) Additional Instructions: Cold compresses to the eyes for comfort May need warm compresses to remove debris in the morning When cleaning the eyes used a washcloth in one direction then change washcloths or use a cotton ball in one direction and then his cotton balls Eyedrops as directed--may be more soothing if left in the refrigerator Do not share medicine--do not touch the eye with the medicine Tylenol or ibuprofen for pain Avoid screen time--television, computer, tablet or phone. Also no reading or driving Follow-up with PCP or clerk general as directed if no improvement in 48 hours If your symptoms persist, change or worsen significantly before you can contact your personal physician then please, without delay, go to the emergency department for further evaluation. Follow-up with PCP in 7-10 days or sooner if needed Patient Language: Macedonian Prescriptions: New ofloxacin 0.3 % drops See Rx Instructions .ROUTE .COMPLEX Qty: 10 0RF Rx Instructions: put 1-2 drps into affected eye(s) every 2-4 h x 2 days, then 1-2 drps 4 times/day days 3-7 Follow-up/Referrals: PHYSICIAN NOT ON STAFF,NONSTAFF [Primary Care Provider] - Time of Disposition: 10:19 Quality Stew Coma Scale Eyes: Open Verbal: Oriented and Alert Motor: Follows Commands Stew Coma Total Score: 15
== END 2024-11-14 10:20 | disposition home or self-care (01) ==
PROVIDERS: Emergency Provider Registered Nurse
DX: H00.025 Hordeolum internum left lower eyelid (principal)
CPT/HCPCS: 99213; G0463

== ENCOUNTER 2025-09-23 11:00 | Outpatient (RCR) | payer OTHER, SELFPAY ==
--- NOTE | 2025-08-14 16:49 | OPREHPOC ---
Outpatient Therapy Plan of Care This is a Multidisciplinary Plan of Care that may contain components documented by all disciplines (PT, OT, and ST.) PT Problem 1 PT Problem #1 Knowledge Deficit PT Goal 1 Goal / Goal Update The patient will be independent in a home exercise program. Target Visit 2 PT Problem 2 PT Problem #2 Pain PT Goal 1 Goal / Goal Update The patient will report no greater than 3/10 right low back pain with standing for 20 minutes. Target Visit 10 PT Problem 3 PT Problem #3 Impaired Functional Mobility PT Goal 1 Goal / Goal Update The patient will demonstrate 25% or less self perceived disability per the Back Index questionnaire. The patient will lift 10# from floor to waist and waist to shoulder with proper body mechanics and minimal low back pain. Target Visit 10 PT Problem 4 PT Problem #4 Impaired Strength PT Goal 1 Goal / Goal Update The patient will demonstrate 4/5 upper and lower abdominal strength to support the spine for daily activities. Target Visit 10
--- NOTE | 2025-08-14 16:50 | PTOPEVAL1 ---
Assessment and note entered by Zakia Santiago, PT Evaluation Information Assessment Status Evaluation ICD-10 Condition Codes (PT) Pain in low back M54.50,Radiculopathy, lumbar region M54.16 Other ICD-10 Condition Codes ( M43.16 lumbar spondylolithesis PT) Onset 08/11/25 Subjective Information Gloria Concepcion reports she has been having right low back pain that radiates into the back of the right thigh and knee. She also has numbness in the lower leg on the right. The symptoms have worsened in the last 3 years after walking a lot on vacation. She now can not walk more than a mile or stand for longer than 10 minutes. She went to her primary care doctor and had a x-ray and MRI that showed spondylolithesis. She then was referred to a neurosurgeon. She went to [facility] and saw a specialist who recommended PT and a possible surgery. She was told she has a grade II spondylolithesis. She has constant pain that increases with standing and feels better with sitting. She does not use any pain medication. She has tried customer care associate that did not help. Reported Pain Level Pain Score 3: Self Report Assessment PT Clinical Summary Gloria Concepcion presents with chronic low back pain with radiation into the right LE. She has been diagnosed with a grade II spondylolithesis. She has difficulty with standing more than 10 minutes and walking long distances. 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 She objectively demonstrates decreased and painful lumbar AROM, decreased core strength, decreased right > left hip strength, and decreased hamstring flexbility. She will benefit from skilled PT to address these limitations and for education in [facility] maintenance of spondylolithesis. Plan of Care Interventions Electrical Stimulation,Hot Pack/Cold Pack,Manual Therapy,Mechanical Traction,Neuro Re-education, Patient/Caregiver Education,Therapeutic Activities ,Therapeutic Exercise,Self-Care/Home Management PT Services Indicated Yes Treatment Frequency and 2 times a week for 10 visits Duration These treatments will address the objective and functional deficits as defined above. The patient will be advanced safely and appropriately in order for the patient to progress towards his/her prior level of function. Additional exercises will be introduced and as well as a comprehensive home exercise program upon discharge, if needed, ?to ensure carryover of functional gains achieved in the clinic. This treatment plan has been reviewed and agreement upon by the patient.
--- NOTE | 2025-09-23 11:57 | OPREHPOC ---
Outpatient Therapy Plan of Care This is a Multidisciplinary Plan of Care that may contain components documented by all disciplines (PT, OT, and ST.) PT Problem 1 PT Problem #1 Knowledge Deficit PT Goal 1 Goal / Goal Update The patient will be independent in a home exercise program. Target Visit 2 Progress Met PT Problem 2 PT Problem #2 Pain PT Goal 1 Goal / Goal Update The patient will report no greater than 3/10 right low back pain with standing for 20 minutes. Target Visit 10 Progress Not Met PT Problem 3 PT Problem #3 Impaired Functional Mobility PT Goal 1 Goal / Goal Update The patient will demonstrate 25% or less self perceived disability per the Back Index questionnaire. -not met The patient will lift 10# from floor to waist and waist to shoulder with proper body mechanics and minimal low back pain. -not met Target Visit 10 Progress Not Met PT Problem 4 PT Problem #4 Impaired Strength PT Goal 1 Goal / Goal Update The patient will demonstrate 4/5 upper and lower abdominal strength to support the spine for daily activities. Target Visit 10 Progress Not Met
--- NOTE | 2025-09-23 11:57 | PTOPDC ---
Assessment and note entered by Franci Nowak, PT Evaluation Information Assessment Status Discharge ICD-10 Condition Codes (PT) Pain in low back M54.50,Radiculopathy, lumbar region M54.16 Other ICD-10 Condition Codes ( M43.16 lumbar spondylolithesis PT) Onset 08/11/25 Subjective Information Pt presents for her 10th skilled PT visit this date. She feels like PT hasn't helped much. She states her pain is still the same and she feels like she hasn't gotten much stronger. She states she works out a lot and just pushes through the pain. She states that she can't change anything about her back and that she has no choice but to get surgery. Reported Pain Level Pain Score 4: Self Report Assessment PT Clinical Summary Mrs. Concepcion has attended 10 skilled PT visits addressing low back pain with grade II spondylolisthesis. She demonstrates only slight progress in core strength this date and continues to report difficulty with prolonged standing, lifting and Oswestry score is also relatively unchanged. She has been independent in her HEP and was educated in additional core strengthening exercises to implement into her HEP and gym routine. Due to lack of progress pt will be discharged from skilled PT this date with education on continuing independent HEP and return to doctor as needed. Plan of Care PT Services Indicated No
== END 2025-09-23 13:18 | disposition home or self-care (01) ==
LOC: CHSPT 11:00
DX: M43.16 Spondylolisthesis, lumbar region (principal); M54.16 Radiculopathy, lumbar region; M54.50 Low back pain, unspecified
CPT/HCPCS: 97014; 97110; 97112; 97161; G0283